=== PATIENT | male | born 1970 | race Caucasian/White ===

== ENCOUNTER 2024-01-01 10:11 | Emergency (ER) | payer BC, SELFPAY ==
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
[2024-01-01 10:22] VITALS: BP 161/103; PULSE 91; RESP 18; O2SAT 96
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
== END 2024-01-01 11:41 | disposition home or self-care (01) ==
LOC: ER 12:29
PROVIDERS: Emergency Provider Physician Assistant
DX: S42.022A Displaced fracture of shaft of left clavicle, initial encounter for closed fracture (principal); V18.0XXA Pedal cycle driver injured in noncollision transport accident in nontraffic accident, initial encounter
CPT/HCPCS: 99284; 73000; 73030; 99283